=== PATIENT | female | born 1975 | race Caucasian/White ===

== ENCOUNTER → 2016-09-21 | Outpatient (CLI) | payer BC ==
[2006-02-06 17:00] VITALS: PULSE 68; TEMP 98.1
== END ==
LOC: MC.RAD 09:40
DX: Z12.31 Encounter for screening mammogram for malignant neoplasm of breast (principal)

== ENCOUNTER → 2017-09-23 | Outpatient (CLI) | payer BC ==
[2006-02-06 17:00] VITALS: PULSE 68; TEMP 98.1
== END ==
LOC: MC.RAD 09:53
DX: N63.23 Unspecified lump in the left breast, lower outer quadrant (principal)

== ENCOUNTER → 2018-10-01 | Outpatient (CLI) | payer BC ==
[2006-02-06 17:00] VITALS: PULSE 68; TEMP 98.1
== END ==
LOC: MC.RAD 13:45
DX: Z12.31 Encounter for screening mammogram for malignant neoplasm of breast (principal)

== ENCOUNTER → 2019-04-29 | Outpatient (CLI) | payer BC ==
[2006-02-06 17:00] VITALS: PULSE 68; TEMP 98.1
== END ==
LOC: COL.VAS 09:29
DX: I49.8 Other specified cardiac arrhythmias (principal)

== ENCOUNTER → 2019-05-08 | Outpatient (CLI) | payer BC ==
[~2019-05-08] VITALS: Ht 157.5 cm; Wt 82.0 kg
[~2019-05-08] MED LIST: MULTIPLE VITAMI1 CAP PO; NEXIUM 20MG20 MG PO; OMEGA-3 1000 MG1 CAP PO; PEPCID 20MG TAB20 MG PO; TOPROL XL 25MG25 MG PO
[2019-05-08 06:30] VITALS: BP 154/95; PULSE 88
== END ==
LOC: COL.CARD 06:11
DX: I25.83 Coronary atherosclerosis due to lipid rich plaque (principal)
CPT/HCPCS: A9500

== ENCOUNTER → 2020-02-22 | Outpatient (CLI) | payer BC ==
[2006-02-06 17:00] VITALS: TEMP 98.1
== END ==
LOC: MC.RAD 01-06 11:30
DX: Z12.31 Encounter for screening mammogram for malignant neoplasm of breast (principal)

== ENCOUNTER → 2021-08-10 | Outpatient (CLI) | payer BC ==
[2006-02-06 17:00] VITALS: TEMP 98.1
== END ==
LOC: MC.RAD 07-20 08:00
DX: Z12.31 Encounter for screening mammogram for malignant neoplasm of breast (principal)

== ENCOUNTER → 2022-09-21 | Outpatient (CLI) | payer BC ==
[2006-02-06 17:00] VITALS: TEMP 98.1
== END ==
LOC: MC.RAD 08:00
DX: Z12.31 Encounter for screening mammogram for malignant neoplasm of breast (principal)

== ENCOUNTER → 2022-09-25 | Outpatient (CLI) | payer BC ==
[2006-02-06 17:00] VITALS: TEMP 98.1
== END ==
LOC: MC.RAD 14:00
DX: N64.89 Other specified disorders of breast (principal); R92.8 Other abnormal and inconclusive findings on diagnostic imaging of breast

== ENCOUNTER → 2023-10-08 | Outpatient (CLI) | payer BC ==
[2006-02-06 17:00] VITALS: BP 126/62; PULSE 68; TEMP 98.1
== END ==
LOC: MC.RAD 15:13
DX: Z12.31 Encounter for screening mammogram for malignant neoplasm of breast (principal)